=== PATIENT | female | born 1965 | race Caucasian/White ===

== ENCOUNTER → 2018-12-26 07:49 | Outpatient (CLI) | payer MEDICAID, SELFPAY ==
--- NOTE | 2018-12-26 09:57 | NEURO ---
NCS and/or EMG Patient Report Ordering Doctor: Louis Stanton DATE OF SERVICE: 12/26/18 This is a left lower extremity EMG and a bilateral lower extremity nerve conduction study performed on this 53-year-old female with a history of numbness and pain in her left leg. She also has leg and hip pain, she says that she had an ablation performed her left lower extremity approximately 1 year ago and has had increased pain in her left lower extremity. On examination she has pain localized to her left mid femur with hip flexion. The remainder of her neurologic examination is normal. Left lower extremity sensory motor nerve conduction study demonstrates slowed conduction velocities from the tibial motor nerves symmetrically with preserved amplitudes and otherwise preserved conduction velocities. sural sensory responses are normal. The tibial and common peroneal F-wave latencies are normal and the tibial H reflex responses are preserved bilaterally. Needle electromyography of the left lower extremities was performed. Muscles evaluated included the extensor digitorum brevis, abductor hallucis, medial gastrocnemius, anterior tibialis, vastus medialis and vastus lateralis muscles. All muscles demonstrated normal insertional activity. Peripheral muscles did demonstrate somewhat enlarged motor units with early recruitment however this abnormality resolved more proximally consistent with peripheral neuropathy. Impression this is an abnormal electrophysiologic study consistent with mild peripheral neuropathy. No evidence of radiculopathy or mononeuropathy otherwise.
== END ==
PROVIDERS: Family Provider Physician Assistant Medical; PCP Physician Assistant Medical; Referring Provider Anesthesiology Pain Medicine; Visit Provider Anesthesiology Pain Medicine
DX: M79.604 Pain in right leg (principal); M79.605 Pain in left leg; M79.601 Pain in right arm; M79.602 Pain in left arm
CPT/HCPCS: 95886; 95910

== ENCOUNTER → 2019-01-23 07:20 | Outpatient (CLI) | payer MEDICAID, SELFPAY ==
--- NOTE | 2019-01-23 09:45 | NEURO ---
NCS and/or EMG Patient Report Ordering Doctor: Louis Stanton DATE OF SERVICE: 01/23/19 This is a bilateral upper extremity nerve conduction study performed on this 53-year-old female with a history of pain in the hand and shoulder. She is status post carpal tunnel release on the right side one year ago but symptoms have persisted. There is a history of diabetes with a hemoglobin A1c of approximately 9. The patient declined EMG study. Bilateral upper extremity sensory and motor nerve conduction study demonstrates prolongation of the median motor distal latencies more so on the right side. The median sensory distal latencies are also mildly prolonged, and amplitudes are reduced again more so on the right side. The right conduction velocities also mildly reduced. The ulnar motor and sensory and radial sensory responses are normal. The right median F wave is prolonged. Impression: Abnormal nerve conduction study of the bilateral upper extremities consistent with moderate median neuropathy at the wrist bilaterally more so on the right side. This may be complicated by the patient's history of diabetes although there is not evidence on this study of polyneuropathy.
== END ==
PROVIDERS: Family Provider Physician Assistant Medical; PCP Physician Assistant Medical; Referring Provider Anesthesiology Pain Medicine; Visit Provider Anesthesiology Pain Medicine
DX: M79.604 Pain in right leg (principal); M79.605 Pain in left leg; M79.601 Pain in right arm; M79.602 Pain in left arm
CPT/HCPCS: 95912